=== PATIENT | male | born 1955 | race Caucasian/White ===

== ENCOUNTER → 2016-05-20 | Outpatient (CLI) | payer BC ==
[~2016-05-20] MED LIST: AMLODIPINE-BEN1 EAC4 PO; CENTRUM SILVER1 TAB PO; NORCO 10-325 T1 EACH PO; PRILOSEC20 MG PO; TYLENOL PM EX-1 EACH PO; XANAX0.5 MG PO
== END | disposition disaster alternative care site (69) ==
LOC: GPOC 05-19 17:00 → GRAD 10:46 → GPOC 10:46 → GRAD 08-18 08:00 → GPOC 08-18 08:00
PROC: 0G9H3ZX Drainage of Right Thyroid Gland Lobe, Percutaneous Approach, Diagnostic (ICD-10-PCS; principal; 2016-05-20)
DX: E07.89 Other specified disorders of thyroid (principal)

== ENCOUNTER 2016-07-03 08:53 | Day surgery (SDC) | payer BC ==
[~2016-07-03] VITALS: Ht 185.4 cm; Wt 80.4 kg
--- NOTE | ~2016-07-03 | OR ---
PATIENT'S NAME: BETHANY BLANCA [facility] AGE: 61 Y [address] ROOM: [place] [address] LOCATION: [facility] ADMIT DATE: 07/03/2016 OR/Procedure Report DISCHARGE DATE: FAMILY PHYSICIAN: CHIN STORY MD ATTENDING PHYSICIAN: Semaj Gill SURGEON: Fuentes Garay MD UPPER LEATHER SORTER: DATE OF PROCEDURE: 07/03/2016 PREOPERATIVE DIAGNOSIS: Right thyroid mass. POSTOPERATIVE DIAGNOSIS: Right thyroid mass. OPERATIONS/PROCEDURES: 1. Right thyroid lobectomy, isthmusectomy. 2. Placement of EMG-monitored endotracheal tube with intraoperative nerve monitoring. ANESTHESIA: General endotracheal anesthesia. ESTIMATED BLOOD LOSS: Minimal. COMPLICATIONS: None. FINDINGS: Frozen section. PATHOLOGY: Consistent with benign follicular process, no evidence of malignancy. DESCRIPTION OF PROCEDURE: The patient was taken to the operating room, laid in supine position under general endotracheal anesthesia with EMG-monitored endotracheal tube. Ground electrodes were placed on the right and left shoulders respectively. Impedance interferences were noted to be within normal limits. Proposed incision line marked and infiltrated with 1% lidocaine with epinephrine solution. The neck was prepped and draped in the usual sterile fashion using Betadine solution. Approximately 8 cm horizontal neck incision was performed using a #15 blade. Subcutaneous tissues as well as platysma were divided using #15 blade. Subplatysmal flap was elevated superiorly up to the level of the thyroid cartilage and secured using 2-0 silk sutures. Subplatysmal flap was elevated inferiorly and secured using a 2-0 silk suture. The strap muscles were divided in the midline using Bovie electrocautery. Strap muscles reflected off to the right. Thyroid lobe was identified. Blunt dissection was then performed circumferentially. Adventitia was divided using Harmonic scalpel. Dissection was performed up to the superior pole. Superior thyroid artery and vein were divided using PATIENT'S NAME: BETHANY BLANCA [facility] AGE: 61 Y [address] ROOM: [place] [address] LOCATION: [facility] ADMIT DATE: 07/03/2016 OR/Procedure Report DISCHARGE DATE: FAMILY PHYSICIAN: CHIN STORY MD ATTENDING PHYSICIAN: Semaj Gill Harmonic scalpel, then clamped, suture ligated using 2-0 silk suture. Thyroid lobe was reflected medially. Blunt dissection was performed along the lateral aspect of the thyroid lobe with Harmonic scalpel. Middle thyroid vein was divided. Isthmus was then divided on the left using Bovie electrocautery, reflected over the anterior wall of the trachea. Thyroid lobe was then reflected medially. Blunt dissection was performed. Inferior parathyroid was identified, firmly attached to the undersurface of the thyroid gland. This was from the thyroid gland with hemostat. Small bleeders were clamped and suture ligated using 3-0 silk suture. Blunt dissection was then performed in the area of the Emory's triangle. Recurrent laryngeal nerve was identified, this was followed superiorly. Adventitia was clamped, suture ligated up to the level of the cricothyroid. Flores's ligament was then crossclamped with hemostat followed by right angle. Flores's ligament was divided using a #15 blade. Thyroid lobe was removed. Inferior thyroid vessels were divided using Harmonic scalpel. Flores's ligament was suture ligated using 3-0 silk suture. Neck was irrigated with copious amounts of saline solution. Hemostasis was noted to be adequate. Recurrent laryngeal nerve was stimulated, intact with good train of response, indicating intact nerve function. The trachea and the thyroid cartilage were elevated and rotated to the left. Dissection was performed posteriorly exposing the fascia for procedure for Dr. Semaj Gill. Neck was then irrigated with copious amounts of saline solution, again hemostasis was adequate. Recurrent laryngeal nerve was stimulated again with good train of response indicating intact nerve function. This portion of the procedure was terminated. Care was then transferred to Dr. Semaj Gill for anterior cervical fusion with wound closure would be performed per Dr. Gill. Frozen section pathology revealed follicular process, no evidence of malignancy. FUENTES GARAY MD TVC/modl /[id number] CC: MD Chin Leigh MD d: 07/03/162002 t: 07/07/16 0721, OPERATIVE SUMMARY
--- NOTE | ~2016-07-03 | OR ---
PATIENT'S NAME: BETHANY BLANCA [facility] AGE: 61 Y [address] ROOM: [place] [address] LOCATION: [facility] ADMIT DATE: 07/03/2016 OR/Procedure Report DISCHARGE DATE: FAMILY PHYSICIAN: CHIN STORY MD ATTENDING PHYSICIAN: Semaj Gill SURGEON: Semaj Gill MD OXYGRAPH OPERATOR: DATE OF PROCEDURE: 07/03/2016 PREOPERATIVE DIAGNOSES: 1. Cervical degenerative disk disease. 2. Cervical stenosis. 3. Cervical spondylosis. 4. Cervical radiculopathy. 5. Neck pain. POSTOPERATIVE DIAGNOSES: 1. Cervical degenerative disk disease. 2. Cervical stenosis. 3. Cervical spondylosis. 4. Cervical radiculopathy. 5. Neck pain. PROCEDURES PERFORMED: 1. Anterior cervical diskectomy and decompression, C4-C5. 2. Anterior cervical diskectomy and decompression, C5-C6. 3. Anterior cervical fusion, C4-C5 interspace. 4. Anterior cervical fusion, C5-C6 interspace. 5. Application of anterior plate screw instrumentation, C4-C6. GRANULATOR MACHINE OPERATOR: FRIEDA Flores. ANESTHESIA: General. ESTIMATED BLOOD LOSS: 25 mL. COMPLICATIONS: None. SPECIMENS: None. FINDINGS: Severe degenerative collapse at C4-C5 with severe stenosis. [id number] spondylosis with stenosis at C5-C6. INSTRUMENTATION USED: Caitie Tempus cervical plate screw construct and [employer] allograft bone. PATIENT'S NAME: BETHANY BLANCA [facility] AGE: 61 Y [address] ROOM: [place] [address] LOCATION: [facility] ADMIT DATE: 07/03/2016 OR/Procedure Report DISCHARGE DATE: FAMILY PHYSICIAN: CHIN STORY MD ATTENDING PHYSICIAN: Semaj Gill OPERATIVE INDICATIONS: The patient is a 61-year-old male with symptomatic cervical spondylosis, stenosis, and radiculopathy. The patient failed conservative treatment. He was offered surgery in the form of anterior cervical diskectomy and fusion. After details, risks, benefits, and options were explained, he freely consented to surgery. OPERATIVE NARRATIVE: After the patient was correctly identified and operative site initialed, he was taken back to the operating room. Dr. Garay performed the right lobe thyroidectomy. After his part of the procedure was completed, he assumed control of his operation. Blunt dissection was brought us down between the strap muscles onto the anterior margin of the spine just inside the carotid sheath. The prevertebral fascia was opened in the midline and dissected laterally to expose the spine. Bent spinal needle was placed into the disk space and verified at C5-C6. This disk was marked. Next, the longus coli were elevated and self-retaining retractors were placed on the medial borders to expose C4-C5 and C5-C6. The disks were incised at both levels and then debrided using pituitaries, curettes, and Kerrisons. The overhanging osteophyte was taken down with a Kerrison to expose the disk space. Disk was denuded off the endplates and the anterior osteophytes were smoothed with a combination of the karen and a Leksell rongeur. The high-speed karen was used to thin the posterior osteophytes. Once they were thinned to a thin margin, they resected using fine 1 mm tipped Kerrison. The ligament was resected using a fine-tipped Kerrison as well. The cord and nerve roots were directly decompressed with Kerrisons. Following decompression, the endplates were rasped and then scored and prepared for fusion. A size 7 bone graft was selected and was impacted at both levels and recessed below the anterior vertebral margin. The weights were removed off the traction and a 2-level plate appropriate length was held in position. The 16 mm screws placed through the plate to engage vertebral bodies at C4, C5, and C6. The screws were locked at each level. The wound was irrigated and dried. Final AP and lateral x-rays demonstrated good placement of the plate screw construct and the bone graft. The wound was irrigated and dried. There was no bleeding. It was closed in layers with a running 3-0 Vicryl, reapproximating the strap muscles. A 2-0 Vicryl in the platysma and then a 4-0 Monocryl in the skin. Sterile dressing was applied. The patient was awakened from anesthesia and taken to the recovery room in stable condition. senior administrative assistant was necessary in this procedure for evacuation of blood during decompression, assistance with placement of the bone graft for fusion and plate screw construct fixation for stabilization. PATIENT'S NAME: BETHANY BLANCA [facility] AGE: 61 Y [address] ROOM: [address] [address] LOCATION: [facility] ADMIT DATE: 07/03/2016 OR/Procedure Report DISCHARGE DATE: FAMILY PHYSICIAN: CHIN STORY MD ATTENDING PHYSICIAN: Semaj Gill MD JMM/jamal /[id number] d: 07/03/162118 t: 07/13/16 1227, OPERATIVE SUMMARY
[~2016-07-03 08:53] MED LIST changes: -NORCO 10-325 T1 EACH PO
[2016-07-04] MEDS ORDERED: NORCO 10-325 T1 EACH PO (11:18)
== END 2016-07-04 11:40 | disposition disaster alternative care site (69) ==
LOC: GSDC 08:53 → G3N 08:53 → GSDC 14:00 → G3N 17:10 → GSDC 07-04 11:40
PROC: 0RG20K0 Fusion of 2 or more Cervical Vertebral Joints with Nonautologous Tissue Substitute, Anterior Approach, Anterior Column, Open Approach (ICD-10-PCS; principal; 2016-07-03)
PROC: 0GTH0ZZ Resection of Right Thyroid Gland Lobe, Open Approach (ICD-10-PCS; 2016-07-03)
DX: D34 Benign neoplasm of thyroid gland (principal); M50.121 Cervical disc disorder at C4-C5 level with radiculopathy; M50.122 Cervical disc disorder at C5-C6 level with radiculopathy; M47.22 Other spondylosis with radiculopathy, cervical region; M48.02 Spinal stenosis, cervical region; I10 Essential (primary) hypertension; E04.9 Nontoxic goiter, unspecified; F41.1 Generalized anxiety disorder; E78.00 Pure hypercholesterolemia, unspecified; M19.90 Unspecified osteoarthritis, unspecified site; Z87.891 Personal history of nicotine dependence; Z88.8 Allergy status to other drugs, medicaments and biological substances; Z98.890 Other specified postprocedural states
CPT/HCPCS: C1713; J0690; J1100; J2250; J2270; J2405; J3010; J3480; J7120